=== PATIENT | female | born 1995 | race Caucasian/White ===

== ENCOUNTER 2019-03-22 15:54 | Emergency (ER) | payer BC, SELFPAY ==
[2019-03-22 15:57] VITALS: BP 140/79; PULSE 112; RESP 16; TEMP 36.6; O2SAT 96; BMI 26.5
--- NOTE | 2019-03-22 16:17 | CT_ITS ---
STUDY: CT ABDOMEN AND PELVIS WITHOUT CONTRAST REASON FOR EXAM: Female, 23 years old. Back pain history of cystic fibrosis RADIATION DOSAGE (If Supplied By Facility): CTDIvol = ( 6.83 ) mGy, DLP = ( 341.48 ) mGycm TECHNIQUE: Transaxial images were obtained from the dome of the diaphragm to the symphysis pubis without oral contrast, and without intravenous contrast. Sagittal and coronal images were reconstructed. Individualized dose optimization techniques were used for this CT. COMPARISON: None. FINDINGS: The visualized lung bases are unremarkable. The visualized portions of the heart are within normal limits. There are punctate densities within the left hepatic lobe which likely representing calcification. Normal gallbladder and extrahepatic biliary system. There is mild splenomegaly. The spleen measures 12.5 x 8.3 x 12.5 cm. There is diffuse atrophy of the pancreas. The pancreatic tissue is not well-visualized. Normal bilateral adrenal glands. Normal right kidney. Normal left kidney. There is a small hiatal hernia. A few nonspecific mesenteric lymph nodes. There are mildly distended loops of small bowel. There is a tortuous appearance of the bowel. There are a few air-fluid levels within the colon. There is a diverticula within the splenic flexure or lymph node image #59. Tip of the appendix is seen on image #31 without significant surrounding inflammation that is upper limits of normal in width. Normal abdominal aorta. Normal inferior vena cava. Normal retroperitoneum. Normal urinary bladder. Normal visualized uterus. There is a left ovarian cyst measuring 1.8 cm. Normal abdominal wall. Normal osseous structures. CT/Abdomen/Pelvis without Cont IMPRESSION: The appendix image #31 and series 601 is visualized. The tip of the appendix is upper limits of normal in width without evidence of inflammatory change recommend correlation with history. There are nonspecific mildly distended loops of small bowel which may represent mild ileus possible enteritis. Small left ovarian cyst. There are no visualized renal ureteral bladder calculi. Mild splenomegaly. Pancreatic atrophy. Electronically Signed: Ebonie Garcia MD at 17:48 EDT Tel , Service support ,
--- NOTE | 2019-03-22 16:17 | RAD_ITS ---
STUDY: X-RAY CHEST REASON FOR EXAM: Female, 23 years old. Right-sided lower back pain TECHNIQUE: Single AP portable view of the chest. COMPARISON: None. FINDINGS: There is a right-sided portacatheter with the tip in the superior vena cava There is a pattern of bilateral upper lung zone peribronchial thickening and areas of cystic change. Normal size heart. Normal mediastinum and deandre. Normal visualized pulmonary arteries. Normal visualized aortic arch and descending thoracic aorta. There are minimal degenerative changes of the visualized thoracic spine. Normal visualized ribs, clavicles, and shoulders. There is no demonstrated abnormality of the visualized soft tissue structures of the upper abdomen. RAD/Chest PA and Lateral IMPRESSION: Findings suspicious for diagnosis of cystic fibrosis with peribronchial inflammatory change. Port-A-Cath. Electronically Signed: Ebonie Garcia MD at 17:51 EDT Tel , Service support ,
--- NOTE | 2019-03-22 16:20 | ED.VISSUMM ---
- ER Visit Summary Date of Service: 03/22/19 Chief Complaint: Flank pain and shortness of breath History of Present Illness: The patient is a 23 F who presents with flank pain shortness of breath that have been getting worse over the past 5 days. Patient states she has a history of kidney stones as well as a history of cystic fibrosis. Patient states she has been coughing up some green sputum. Patient admits to subjective fevers and chills. Patient also admits to some sweats. Patient denies any chest pain. Patient states she does have pain in her low back and bilateral flanks. Patient states that with prior kidney stone she became septic and was hospitalized for lengthy time. Patient denies any dysuria or hematuria. Physical Examination: Vital signs are stable except for mild tachycardia of 112. Patient is afebrile. Patient is in no acute distress. Oral mucosa is pink and moist. Neck is supple. Trachea is midline. There is no JVD. Heart was regular rate and rhythm. Lungs were diminished bilaterally. There is adequate respiratory effort noted. Abdomen is soft. Bowel sounds are normal. There is no tenderness. There is no guarding. Cranial nerves II through XII are intact. There are no focal motor or sensory deficits noted. Test Results: CBC shows a slight leukocytosis of 15.4. Basic metabolic profile and urinalysis were normal. hCG was negative. Chest x-ray shows chronic changes consistent with cystic fibrosis with some inflammatory changes. CT scan of the abdomen and pelvis was obtained. There are no renal, ureteral, or bladder calculi noted. Emergency Department Course and Treatment: Patient was feeling better on reevaluation. Patient was instructed to follow-up with her primary care physician and churn driller helper as scheduled. Patient understood and was agreeable with the plan. All questions were answered. Disposition: Discharge home Impression: 1. Low back pain This note was generated with Wooop dictation software. It may contain incorrect words, spelling, and punctuation that were not noted in review of the chart prior to signing ED Disposition - Plan for ED Patient: Disposition: Home or Assisted Living Diagnosis: Low back pain Instructions: FLANK PAIN, Uncertain Cause Referrals: Care Physician,No Primary [Primary Care Provider] - 3-5 Days Additional Instructions: Continue your medications as previously prescribed. Follow-up with your primary care physician in 5 to 7 days. Return to the emergency department if worse in any way.
[2019-03-22 16:51] LABS: Absolute Lymphocyte Count 1.81 X10^3/uL (0.83-4.51); Absolute Neutrophil Count 12.4 X10^3/uL (2.0-7.7); Basophil# 0.07 X10^3/uL; Basophil% 0.5 % (0-1); Eosinophil# 0.06 X10^3/uL; Eosinophils% 0.4 % (0-5); Hematocrit 39.7 % (37-47); Hemoglobin 12.4 g/dL (12.0-15.0); Lymphocyte # 1.81 X10^3/ul (4.0); Lymphocyte % 11.7 % (19-41); Mean Corp Hgb Conc 31.2 g/dL (32-36); Mean Corpuscular Volume 86.3 fL (81-99); Mean Platelet Vol. 10.4 fl (6.2-12.0); Monocyte# 1.08 X10^3/uL; NRBC Flagged by Analyzer 0 % (0-5); Neutrophil # 12.36 X10^3/uL (2.7-7.7); Platelet Count 425 K/mm3 (150-450); RBC Distribution Width CV 13.4 % (11.6-14.6); RBC Distribution Width SD 42.1 fl (35.1-43.9); White Blood Count 15.4 K/mm3 (4.4-11.0)
[2019-03-22 16:59] LABS: Bacteria 0 SEEN /hpf (None Seen); Mucous, Urine 0 SEEN /hpf (<or=2+); Red Blood Cells-Urine 0 SEEN /hpf (0-5); White Blood Cells 0 SEEN /hpf (0-5)
[2019-03-22 17:09] LABS: Color, Urine Straw (Yellow); Glucose, Dipstick Normal (Normal); Ketone-Dipstick Negative (Negative); Leukocyte Esterase-Dipstick Negative /ul (Negative); Nitrite-Dipstick Negative (Negative); Occult Blood-Urine Negative /ul (Negative); Protein-Dipstick Negative (Negative); Specific Gravity, Urine 1.015 (1.002-1.030); Urine Bilirubin Dipstick Negative (Negative); Urine Clarity Clear (Clear); Urine Urobilinogen Normal (Normal)
[2019-03-22 17:13] LABS: Internal QC Validated? YES +Cl - CLEAR BKGD; Pregnancy, Serum, hCG Quali. NEGATIVE Negative
[2019-03-22 17:20] LABS: Squamous Epithelial Cells - UA 0-5 SEEN /hpf (5-10)
[2019-03-22 17:45] LABS: Anion Gap 6 (5-15); BUN 7 mg/dL (7-18); BUN/Creat Ratio 8.4 RATIO (10-20); Calcium,Total 9.4 mg/dL (8.5-10.1); Chloride 104 mmol/L (98-107); Creatinine, Serum 0.84 mg/dL (0.55-1.02); EST Glomerular Filtration Rate 90 mL/min (>60); Est Glom Filt Rate - Afr Amer 109 mL/min (>60); Glucose 81 mg/dL (74-106); Potassium 4.4 mmol/L (3.5-5.1); Sodium Level 136 mmol/L (136-145)
== END 2019-03-22 18:41 | disposition home or self-care (01) ==
PROVIDERS: Emergency Provider Emergency Medicine
DX: M54.5 Low back pain (principal); E84.9 Cystic fibrosis, unspecified; E11.9 Type 2 diabetes mellitus without complications; Z87.442 Personal history of urinary calculi
CPT/HCPCS: 71046; 74176; 80048; 81001; 84703; 85025; 99284; A4216

== ENCOUNTER → 2020-01-10 | Outpatient (CLI) | payer BC, SELFPAY ==
[2019-12-31 18:54] VITALS: BMI 28.9
[2020-01-14 03:06] LABS: Chlamydia By Nucleic Acid AMP Negative (Negative)
[2020-01-14 10:46] LABS: Gonococcus By Nucleic Acid AMP Negative (Negative)
== END | disposition home or self-care (01) ==
PROVIDERS: Referring Provider Obstetrics & Gynecology; Visit Provider Obstetrics & Gynecology
DX: Z11.3 Encounter for screening for infections with a predominantly sexual mode of transmission (principal)
CPT/HCPCS: 87491; 87591

== ENCOUNTER → 2020-01-15 06:20 | Outpatient (CLI) | payer BC, SELFPAY ==
[2019-12-31 18:54] VITALS: BMI 28.9
[2020-01-15 07:22] LABS: Hematocrit 43.3 % (37-47); Hemoglobin 14.1 g/dL (12.0-15.0); Mean Corp Hgb Conc 32.6 g/dL (32-36); Mean Corpuscular Hgb 28.9 pg (27.0-32.0); Mean Corpuscular Volume 88.7 fL (81-99); Mean Platelet Vol. 11.1 fl (6.2-12.0); Platelet Count 317 K/mm3 (150-450); RBC Distribution Width CV 12.3 % (11.6-14.6); RBC Distribution Width SD 39.8 fl (35.1-43.9); Red Blood Count 4.88 M/mm3 (4.2-5.4); White Blood Count 5.9 K/mm3 (4.4-11.0)
[2020-01-15 08:24] LABS: PTHIN 47.5 pg/mL (18.4-80.1)
[2020-01-15 08:49] LABS: Estradiol 24.2 pg/mL; Follicle Stimulating Hormone 6.3 mIU/mL; Luteinizing Hormone 5.3 mIU/mL; T4 Free Direct 1.18 ng/dL (0.76-1.46); Thyroid Stim Hormone (TSH) 4.76 uIU/mL (0.358-3.74)
[2020-01-15 10:19] LABS: HIV - WCH Non-Reactive (Nonreactive); Hepatitis B Surface Antigen Non-Reactive (Nonreactive); Hepatitis C Antibody Non-Reactive (Nonreactive); Progesterone Level 0.43 ng/mL (See Comment); Rubella IgG 109.8 IU/mL
[2020-01-16 05:28] LABS: Rapid Plasmin Reagin (RPR) NONREACTIVE (NONREACTIVE)
[2020-01-19 16:28] LABS: 17-Hydroxyprogesterone 44 ng/dL (.)
[2020-01-20 00:21] LABS: Anti-Mullerian Hormone,Serum 3.26 ng/mL (.)
== END ==
LOC: LAB 06:24
PROVIDERS: PCP Nurse Practitioner; Referring Provider Obstetrics & Gynecology; Visit Provider Obstetrics & Gynecology
DX: N93.9 Abnormal uterine and vaginal bleeding, unspecified (principal); Z11.3 Encounter for screening for infections with a predominantly sexual mode of transmission
CPT/HCPCS: 36415; 82670; 83001; 83002; 83498; 83516; 83970; 84144; 84403; 84439; 84443; 85027; 86592; 86703; 86762; 86803; 87340

== ENCOUNTER → 2020-02-17 | Outpatient (CLI) | payer BC, SELFPAY ==
[2019-12-31 18:54] VITALS: BMI 28.9
--- NOTE | 2020-02-17 10:20 | RAD_ITS ---
STUDY: HYSTEROSALPINGOGRAM. REASON FOR EXAM: Female, 24 years old. Infertility FLUOROSCOPY TIME (if supplied): ( 34 seconds ) minutes/seconds. 2 images were obtained. TECHNIQUE: A hysterosalpingogram was performed by the economics teacher. Imaging was provided. COMPARISON: None. FINDINGS: The uterus is unremarkable. Both fallopian tubes are patent with free spill. RAD/Salpingogram IMPRESSION: Normal hysterosalpingogram. Electronically Signed: Weston Weller, at 11:03 EDT , Service support ,
== END | disposition home or self-care (01) ==
LOC: RAD 10:03
PROVIDERS: PCP Nurse Practitioner; Referring Provider Obstetrics & Gynecology; Visit Provider Obstetrics & Gynecology
DX: N97.9 Female infertility, unspecified (principal)
CPT/HCPCS: 58340; 74740; Q9967

== ENCOUNTER → 2020-10-13 10:02 | Outpatient (CLI) | payer BC, SELFPAY ==
[2019-12-31 18:54] VITALS: BMI 28.9
[2020-10-13 11:10] LABS: Absolute Lymphocyte Count 1.68 X10^3/uL (0.83-4.51); Absolute Neutrophil Count 4.2 X10^3/uL (2.0-7.7); Basophil# 0.05 X10^3/uL; Basophil% 0.7 % (0-1); Eosinophil# 0.21 X10^3/uL; Eosinophils% 3.1 % (0-5); Hematocrit 39.2 % (37-47); Hemoglobin 12.8 g/dL (12.0-15.0); Lymphocyte # 1.68 X10^3/ul (0.83-4.51); Lymphocyte % 25.1 % (19-41); Mean Corp Hgb Conc 32.7 g/dL (32-36); Mean Corpuscular Hgb 27.9 pg (27.0-32.0); Mean Corpuscular Volume 85.4 fL (81-99); Mean Platelet Vol. 11.4 fl (6.2-12.0); Monocyte# 0.51 X10^3/uL; Monocyte% 7.6 % (0-10); NRBC Flagged by Analyzer 0 % (0-5); Neutrophil # 4.23 X10^3/uL (2.7-7.7); Neutrophil % 63.4 % (47-70); Platelet Count 269 K/mm3 (150-450); RBC Distribution Width CV 13.2 % (11.6-14.6); RBC Distribution Width SD 40.9 fl (35.1-43.9); Red Blood Count 4.59 M/mm3 (4.2-5.4); White Blood Count 6.7 K/mm3 (4.4-11.0)
[2020-10-13 12:30] LABS: HIV - WCH Non-Reactive (Nonreactive); Hepatitis B Surface Antigen Non-Reactive (Nonreactive); Hepatitis C Antibody Non-Reactive (Nonreactive); Rubella IgG Reactive (Nonreactive); Syphilis Antibodies Non-reactive
[2020-10-15 18:01] LABS: HPV Reflexed? NOT INDICATED
[2020-10-15 20:08] LABS: Chlamydia By Nucleic Acid AMP Negative (Negative)
[2020-10-16 08:29] LABS: Gonococcus By Nucleic Acid AMP Negative (Negative)
== END ==
PROVIDERS: PCP Nurse Practitioner; Visit Provider Obstetrics & Gynecology
DX: Z34.81 Encounter for supervision of other normal pregnancy, first trimester (principal)
CPT/HCPCS: 36415; 85025; 86703; 86762; 86780; 86803; 87086; 87088; 87340; 87491; 87591; 88175; G0145

== ENCOUNTER 2020-10-21 07:33 | Day surgery (SDC) | payer BC, SELFPAY ==
[2019-12-31 18:54] VITALS: BMI 28.9
[2020-10-21] VITALS (9 sets, daily range): BP systolic 100–119; BP diastolic 52–71; PULSE 72–95; RESP 16–18; TEMP 36.4–37.3; O2SAT 97–100; BMI 31.8
[2020-10-21] MEDS: Lactated Ringers 1,000 ML 100 ML IV (08:30)
[2020-10-21 08:41] LABS: Hematocrit 40.4 % (37-47); Hemoglobin 12.8 g/dL (12.0-15.0); Mean Corp Hgb Conc 31.7 g/dL (32-36); Mean Corpuscular Hgb 28.4 pg (27.0-32.0); Mean Corpuscular Volume 89.6 fL (81-99); Mean Platelet Vol. 11.3 fl (6.2-12.0); Platelet Count 224 K/mm3 (150-450); RBC Distribution Width CV 13.4 % (11.6-14.6); RBC Distribution Width SD 43.8 fl (35.1-43.9); Red Blood Count 4.51 M/mm3 (4.2-5.4); White Blood Count 7.5 K/mm3 (4.4-11.0)
--- NOTE | 2020-10-21 08:53 | HP.PCM.OB_ITS ---
History and Physical Date of Admission: 10/21/20 Chief complaint: Missed History of present illness: 25-year-old G1, P0 with SULEMA: 05/30/2021 at 8 weeks and 3 days but with missed of mono ditwins measuring 7 weeks and 2 days. Denies headache, chest pain, shortness of breath, nausea vomiting, right upper quadrant pain, visual changes. Obstetric history: G1: Current Past medical history: Cystic fibrosis Medications: Creon, cromolyn, Trikafta Past surgical history: Hernia repair, Mediport insertion, bowel obstruction as a child Allergies: Sulfa, levofloxacin, vancomycin, dicyclomine Social history: Denies smoking, alcohol use, drug use Family history: Denies history DVT or PE Review of systems: Besides above pertinent positives a full review of systems was performed found to be negative Physical exam: Vitals: Blood pressure 119/60 pulse 84 respiratory rate 16 temperature 97.9 SpO2 98% General: Normal-appearing no acute distress HEENT: Normocephalic atraumatic no cervical lymphadenopathy Cardiac/respiratory: No use of accessory muscles, nonlabored breathing Abdomen: Soft, nontender, nondistended Pelvic exam: Normal external genitalia. Moist vaginal rugae. Cervix closed, no signs of bleeding or discharge. Uterus nontender Extremities: No peripheral edema normal peripheral pulses Psych: Normal affect normal demeanor nonpressured speech Labs: White blood cell count 7.5 hemoglobin 12.8 hematocrit 40.4% platelets 224. Blood type a positive In office ultrasound: Monitor I twins both baby A and B with no heart rate measuring 7 weeks 2 days Assessment plan: 25-year-old with missed of mono ditwins measuring 7 weeks and 2 days in need of suction dilation curettage. Patient understands the risk of the procedure include but are not limited to visceral or vascular injury, prolonged hospitalization, blood loss need for transfusion, reoperation. All questions were answered consent was signed. Educated patient on genetic screening and options for products of conception. Patient declines genetic screening and is not wish for products of conception ongoing. Patient with cystic fibrosis, stable seeing a physician in [facility] with stable lung function and asymptomatic. Patient with previous labs, no labs this morning discussed this with anesthesia who agrees.
--- NOTE | 2020-10-21 09:00 | POC_PTH ---
PATIENT: OCTAVIO SAMANO LOC: [facility] [place] [facility] [place] U[place][id number] AGE/SX: 25/F ROOM: RE10/21/[address]: Dr. Kirill Roberts MD : 1995 BED: DIS: 10/21/2020 SPEC #: [id number] RECD: 10/21/20 11:24 STATUS: PARKER JAMESONKristel #: [id number] ZULMA: 10/21/20 09:[address]: Kirill Roberts DEPT: SURGICAL PATHOLOGY RECD BY: Scooby Craig ENTERED: 10/21/20 11:40 SP TYPE: PROD CONC OTHR DR: Karly Ramirez, BYPRODUCT ENGINEER-C Tissues: Product of conception, NOS Procedures: Surgery Specimen Level IV HEADER OPERATION: Suction dilation and curettage PRE-OP DIAGNOSIS: Missed TISSUE SUBMITTED: Products of conception MICROSCOPIC DIAGNOSIS Endometrium, curettage: Chorionic villi, decidualized stroma and trophoblastic cells consistent with products of conception. AM:margot 10/22/2020 MICROSCOPIC DESCRIPTION Slides are reviewed. GROSS DESCRIPTION Received in fixative is one container labeled with the patient's name and designated products of conception. The specimen consists of multiple irregular fragments of canales-pink soft tissue that in aggregate measure 7 x 7 x 2 cm. tissue is not identified. Truck Driver Supervisor sections are submitted in three cassettes. / SJ:margot 10/21/20 TC:5 [facility]: [id number]
[2020-10-21] MEDS: Oxytocin 10 UNITS/ML Vial (09:27)
[2020-10-21] MEDS: Lubricating Jelly 60 GM Tube 30 GM TOPICAL (09:34)
--- NOTE | 2020-10-21 10:06 | OP.PCM_ITS ---
Report of Operation Date of Procedure: 10/21/20 Pre-Operative Diagnosis: Missed Post-Operative Diagnosis: Missed Surgery/Procedure Performed:: Suction dilation curettage Description of Surgical Findings:: Surgeon: Kirill Roberts MD Anesthesia: MAC EBL: 50 cc Urine output: 200 cc IV fluids: 300 cc Complications: None Specimen: Products of conception Findings: Cervix closed, no bleeding noted. 8 mm curved suction curette used. 10 units of oxytocin intracervically injected post procedure. Post procedure ultrasound showed thin endometrial stripe. Consent: Patient with 7-week mono ditwins found to have missed in need of suction dilation curettage. Patient understands the risk of the procedure include but are not limited to visceral or vascular injury, prolonged hospitalization, blood loss and need for transfusion, reoperation. Patient state understanding wish to proceed. Educated on genetic screening and options for products of conception, patient declined genetic screening and declined handling of products of conception. All questions were answered and consent was signed. Procedure: Patient was brought back to the OR where MAC anesthesia was found be adequate. 200 mg of doxycycline IV were given for infection prophylaxis. Patient was prepared and draped in a dorsolithotomy position with yellowfin stirrups. Weighted speculum was placed in the posterior aspect of the vagina and cervical dilators were used to dilate the cervix. 8 mm suction curette used under direct visualization. Good hemostasis was noted. 10 units of oxytocin intracervically injected. Good hemostasis was noted. Post procedure bedside ultrasound was performed and above findings were noted. Good hemostasis was noted, all counts correct x2. Patient tolerated procedure well was brought to recovery in stable condition. drone operator: Mary Zapata
--- NOTE | 2020-10-21 10:12 | DCINST_ITS ---
Discharge Instructions Diet Discharge Diet: No restrictions Activity Discharge Activity: Return to Normal Activity, May Drive and May Shower May resume sexual activity in: 4-6 weeks Weight Bearing Status: Weight bearing as tolerated Dressing / Incision Call your doctor if your incision/area has: Continuous Slow Oozing, Sudden Increased Bleeding and Foul Smelling Discharge Call your doctor if you observe: Fever of 101 or Higher, Shortness of breath and Chest pain Follow Up Care Please Follow Up With: Kirill Roberts MD When: 2 weeks postoperatively Test Results: Test results from this visit will be discussed in further detail at your follow-up appointment, if applicable. Discharge Plan Admission Attending Provider: Kirill Roberts Primary Care Provider: Karly Ramirez CERTIFIED PROFESSIONAL ERGONOMIST Discharge Orders/Prescriptions Prescriptions: No Action Creon 24,000-76,000 -120,000 unit capsule,delayed release(DR/EC) 7 cap PO TID RF: 0 albuterol sulfate 90 mcg/actuation HFA aerosol inhaler 1 inh INHALATION BID RF: 0 acetylcysteine 200 mg/mL (20 %) solution 2 ml INHALATION BID RF: 0 cromolyn 20 mg/2 mL solution for nebulization 2 ml INHALATION BID RF: 0 Trikafta 100-50-75 mg(d) /150 mg (n) tablets, sequential See Rx Instructions .ROUTE .COMPLEX RF: 0 Disposition Discharge Orders: Discharge Patient (Routine); Ordered 10/21/20 Ordered By: Dr. Kirill Roberts
[2020-10-21] MEDS: Ketorolac 30 MG/ML Syringe IV (10:21)
== END 2020-10-21 11:19 ==
LOC: SDC 07:34 → AC 07:35
PROVIDERS: PCP Nurse Practitioner; Referring Provider Obstetrics & Gynecology; Visit Provider Obstetrics & Gynecology
PROC: (CPT 59820; principal; 2020-10-21 08:45)
DX: O02.1 Missed abortion (principal); Z20.822 Contact with and (suspected) exposure to COVID-19
CPT/HCPCS: 59820; 85027; 87426; 88305; J7120; J2405

== ENCOUNTER → 2021-04-13 10:57 | Outpatient (CLI) | payer BC, SELFPAY ==
[2021-04-13 11:17] LABS: Absolute Lymphocyte Count 1.63 X10^3/uL (0.83-4.51); Basophil# 0.03 X10^3/uL; Basophil% 0.5 % (0-1); Eosinophils% 1.6 % (0-5); Hematocrit 40.7 % (37-47); Hemoglobin 13.3 g/dL (12.0-15.0); Lymphocyte # 1.63 X10^3/ul (0.83-4.51); Lymphocyte % 26.1 % (19-41); Mean Corp Hgb Conc 32.7 g/dL (32-36); Mean Corpuscular Hgb 28.2 pg (27.0-32.0); Mean Corpuscular Volume 86.2 fL (81-99); Mean Platelet Vol. 11.3 fl (6.2-12.0); NRBC Flagged by Analyzer 0 % (0-5); Neutrophil # 3.97 X10^3/uL (2.7-7.7); Neutrophil % 63.6 % (47-70); Platelet Count 237 K/mm3 (150-450); RBC Distribution Width CV 13.2 % (11.6-14.6); RBC Distribution Width SD 40.9 fl (35.1-43.9); Red Blood Count 4.72 M/mm3 (4.2-5.4); White Blood Count 6.2 K/mm3 (4.4-11.0)
[2021-04-13 12:27] LABS: HIV - WCH Non-Reactive (Nonreactive); Hepatitis B Surface Antigen Non-Reactive (Nonreactive); Hepatitis C Antibody Non-Reactive (Nonreactive); Syphilis Antibodies Non-reactive
[2021-04-14 22:06] LABS: Chlamydia By Nucleic Acid AMP Negative (Negative)
[2021-04-14 22:48] LABS: Gonococcus By Nucleic Acid AMP Negative (Negative)
== END ==
PROVIDERS: PCP Nurse Practitioner; Visit Provider Obstetrics & Gynecology
DX: Z34.81 Encounter for supervision of other normal pregnancy, first trimester (principal)
CPT/HCPCS: 36415; 85025; 86703; 86762; 86780; 86803; 87086; 87088; 87340; 87491; 87591

== ENCOUNTER 2021-08-09 09:22 | Outpatient (CLI) | payer BC, SELFPAY ==
[2021-08-09 10:45] LABS: Hematocrit 33.8 % (37-47); Hemoglobin 11.5 g/dL (12.0-15.0); Mean Corpuscular Hgb 30.1 pg (27.0-32.0); Mean Corpuscular Volume 88.5 fL (81-99); Mean Platelet Vol. 11.6 fl (6.2-12.0); Platelet Count 213 K/mm3 (150-450); RBC Distribution Width CV 14.5 % (11.6-14.6); RBC Distribution Width SD 45.9 fl (35.1-43.9); Red Blood Count 3.82 M/mm3 (4.2-5.4); White Blood Count 7.3 K/mm3 (4.4-11.0)
[2021-08-09 10:51] LABS: Glucose Challenge Gest 1H 50g 158 mg/dL (70-140)
== END 2021-08-09 23:59 | disposition home or self-care (01) ==
LOC: WOBLAB 09:24
PROVIDERS: PCP Nurse Practitioner; Visit Provider Obstetrics & Gynecology
DX: Z34.83 Encounter for supervision of other normal pregnancy, third trimester (principal)
CPT/HCPCS: 36415; 82950; 85027

== ENCOUNTER → 2021-10-26 | Outpatient (CLI) | payer BC, SELFPAY | END | disposition home or self-care (01) | LOC: LABSPEC 13:19 | PROVIDERS: PCP Nurse Practitioner; Visit Provider Obstetrics & Gynecology | DX: Z36.85 Encounter for antenatal screening for Streptococcus B (principal) | CPT/HCPCS: 87081 ==

== ENCOUNTER 2021-10-28 05:45 | Inpatient (IN) | payer BC, SELFPAY ==
[2021-10-28] VITALS (23 sets, daily range): BP systolic 95–117; BP diastolic 46–76; PULSE 65–99; RESP 15–18; TEMP 35.9–37.1; O2SAT 96–100; BMI 34.2
[2021-10-28 05:39] LABS: ROM Internal Control Test YES-OK TO RESULT pt. (Internal QC)
[2021-10-28 05:40] LABS: ROM Patient Test POSITIVE (Negative)
[2021-10-28] MEDS: Lactated Ringers 1,000 ML 999 ML IV (06:20)
[2021-10-28 06:21] LABS: Bedside Glucose 82 mg/dL (74-106)
--- NOTE | 2021-10-28 06:42 | PCM.HP.BLA ---
History and Physical Date of Admission: 10/28/21 ACOG ANTEPARTUM RECORD - HISTORY AND PHYSICAL (10/28/2021) Name: BISI SAMANO History of this : This is a 26 year old [id number] presents at 37 wks + 0 days gestation with PROM. PNC remarkable for recent breech confirmed with bedside u/s just now. OB Physician: MARYELLEN BARRIENTOS MD Mulhall's Physician: PED AVICULTURIST ...................................................................... : 1995 Age: 26 Address: [address] [place] [address] Phone: [phone]) [phone] Insurance Carrier: [employer] [facility] [id number] Emergency Contact: KARINA NAYAK/SPOUSE [phone] ...................................................................... Final SULEMA: 11/18/21 By Ultrasound: 6 weeks 5 days PARITY: (G-Total Pregnancies P-Fullterm,Premature,Induced AB,Spont AB, Ectopics, Multiple,Living) SULEMA CONFIRMATION: By LMP: 02/11/21 Initial Exam: 11/18/21 By First Ultrasound Exam: 11/19/21 Final SULEMA: 11/18/21 OB PROBLEM LIST: ALLERGIES: SULFA, ZOSYN, VANCOMYCIN,FLOMAX, BENTYL, LEVSIN, LEVAQUIN planned, office class encouraged , office childbirth class enc Declines genetic screening GDMA1 , LGA 97% Hx of renal calculi, and UTI's Prefers no epidural, but is not opposed if needed Pt with Cystic fibrosis , pt sees [facility]. FOB negative for CF. s/p MFM consult. For growth u/s at 28wks then q4wks ALLERGIES: Bentyl Chest pain Flomax Shortness of breath Levaquin Angioedema of tongue Levsin Chest pain Sulfa (Sulfonamide Antibiotics) Hives and/or rash Vancomycin Hives and/or rash Zosyn Difficulty breathing MEDICATIONS: acetylcysteine 100 mg/mL (10 %) solution BID albuterol sulfate 2.5 mg/3 mL (0.083 %) solution for nebulization As Directed Creon 24,000-76,000-120,000 unit capsule,delayed release 21 capsule PO QD cromolyn 20 mg/2 mL solution for nebulization As Directed 28 mg-800 mcg tablet One pill by mouth once a day Trikafta 100-50-75 mg (d)/150 mg (n) tablets 1 PO BID SOCIAL HISTORY: Smoking - Never Alcohol Use - denies drinking Diet - balanced Diet Lifestyle - low stress lifestyle, active lifestyle and Exercise - very active 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 - [employer] 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 Illicit Drug Use - denies use of street drugs Sexual Activity - single sexual partner Residence - Lives with SO Place of - [place], [place] Hours Worked - 45 Spouse-Sig Other Name - Karina Nayak Spouse-Sig Other Occupation - [employer] Spouse-Sig Other Phone No - [phone] PRIOR DELIVERY HISTORY DEL DATE GEST LAB WT LB WT OZ TYPE ANES LABOR TX 02 Nov 09 7 0 [phone] 0 Sab General No ANTEPARTUM FLOW CHART VISIT GE RTC FU F F ID U U DATE WK MD WKS HT PN HR M SS BP ED WT ID GL D EF ST __ ____ ___ __ __ ___ __ __ __ ___ __ __ __ ___ __ 07 Oct JM 1 36 B on + 128/72 sl 193 - - 2 September JM 1 35 B on + 118/60 sl 194 ne ne September JM 1 34 B on + 122/78 0 192 - - September JMW 1 33 + + 114/70 0 189 tr - September JM 1 32 B + + 126/72 0 191 - - October 19 JMW 1 31 + + 86/60 190 tr ne Sep 17 JMW 2 29 + + 110/64 0 186 - - Sep 16 JM 2 - - on + 124/66 0 189 - - Aug 13 JM 4 - - + + 108/68 0 185 - - Jul 12 JM 4 21 - on + 98/64 0 183 - - Jun 07 JM 4 - - + + 118/62 0 178 - - May 03 JM 4 - - + O 116/74 0 176 tr - Mar 29 JM 4 - - on O 124/76 0 182 ne ne ANTEPARTUM NOTE(S): Oct 26 2021: Oct 19 2021: FM well, No complaints Oct 12 2021: Oct 05 2021: Sono today,Feeling Well,Good FM Sep 28 2021: Sep 21 2021: Excellent BS control; NST reactive Sep 06 2021: Normal BS results Aug 30 2021: Aug 09 2021: Jul 13 2021: having a boy Jun 11 2021: doing well May 13 2021: doing well Apr 13 2021: No problems COMPREHENSIVE ANTEPARTUM NOTE(S): Oct 26 2021: Bisi is 36w5d here for PNV good FM slight edema. GBS and LARC today. No concerns expressed. Would like cervical check today. Blood sugars are copied. BR Oct 26 2021: 36 weeks, BPP today 12/27. LGA 8lb9oz 97%. Breech, Discussed version versus , patient desires primary section. Order for surgery placed for 11/11/2021 for primary section. GDM A1 OTBS wnl. GBS collected today. Continue weekly BPP's JM Oct 19 2021: 35 weeks, BPP today 12/27. LGA. Breech, Discussed version versus , patient leaning towards . If breech next visit will schedule primary section for breech. GDMA1, OTBS wnl. GBS next visit. JM Oct 12 2021: Bisi is 34w5d here for PNV good FM no edema. Suagrs are copied. No concerns today. BR Oct 12 2021: 34 weeks, BPP 12/27, breech. Educated patient on breech. GDM A1, OTBS within normal limits. Ordered for BPP weekly. JM Sep 28 2021: Bisi is 32w5d here for PNV good FM no edema. States she is doing well no concerns. BR Sep 28 2021: 32 weeks, growth ultrasound today LGA 97 percentile. Breech. VU within normal limits. GDM A1, OTBS within normal limits. Ordered for BPP weekly. JM Sep 21 2021: Bisi is here w her for initial NST and visit. NST explained and questions answered. Feeling well. Baby active. Office Childbirth and BF Classes for September suggested along w [facility] WP virtual tour. NST reactive per Dr AGARWAL.. GIUSEPPE. Sep 06 2021: Bisi is 29w4d here for PNV good FM no edema. No concerns today. BR Aug 30 2021: Shannan is 28w4d here for PNV good FM no edema. She forgot to bring her blood sugars. BR Aug 30 2021: 28wk, Growth u/s today EFW >90% otherwise wnl. GDMA1 did not bring OTBS but states normal. Reviewed normal values. Ordered growth u/s at 32wks, consider weekly BPP's at 32wks. To see pulmonology in 3rd trimester. JM Aug 09 2021: Bisi is 25w4d here for PNV good FM no edema. no conerns 1 hr GTT today. BR Aug 09 2021: 25 weeks, 1 hour GTT today. Pulmonology ordered 2-hour GTT for standard glucose screening with cystic fibrosis. Patient failed 2-hour GTT, 156. Currently taking OTBS fasting and 2hr PP, all within normal limits. If failed 1 hour today will discontinue taking blood sugars and treat as GDMA, otherwise if past will just continue to allow pulmonology to treat appropriately. Status post second MFM Jul 13 2021: Bisi is here for a pnv at 21/5. Good FM. No edema present. Denies concerns/ complaints. Having a boy. GTT instructions and supplies given for next appt. MK Jul 13 2021: 21wks, anatomy u/s wnl. Saw pulmonology and will now be referred to a different MFM physician at [facility]. Is scheduled to see both pulmonology and MFM in July. For 1 hour GTT next visit. JM Jun 11 2021: Bisi is here for PNV. 17w1d doing well. States she has started to feel the baby move a little bit. No concerns or questions. BR Jun 11 2021: 17wk, patient with CF and sees [facility] sewage plant supervisor to ordered and MFM consult to the [facility] MFM's. Patient had virtual visit with [facility] MFM this, had very difficult experience. MFM's only recommendation was for vaccination. no recommendations on care, records pending. Patient scheduled for follow-up with sewage plant supervisor in June. Will discuss with pu May 13 2021: Bisi is 13weeks here today for PNV. Doing well with occasional nausea. No questions or complaints at this time. BR May 13 2021: 13 weeks, patient with cystic fibrosis seeing sewage plant supervisor. Windows Security Engineer ordered MFM consult, scheduled for virtual MFM visit on 05/17/2021. Patient canceled my order for genetic counseling. Minimal to mild nausea, improving. JM May 13 2021: Bisi is here for her NOB visit, she is a A1 with an SULEMA of 11/18/2021, current GA is 13 w 0 d. She is accompanied today by her SO, Karina Nayak, he seems to be very supportive. They state happiness with . 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 Karina is a [employer] hydraulic mechanic. Office practice patterns reviewed, as well as warning signs of preganncy , how to contact the off Apr 13 2021: Bisi is here for 8 wk 5 d PNV and FHT u/s. Spouse is with her for visit. Lab consent signed for cultures and bld work. Apr 13 2021: 8wk, panel and cultures today. Patient with cystic fibrosis sees [facility] has scheduled follow-up appointment. FOB negative for cystic fibrosis. Referral for MFM genetic counseling placed. Declines further genetic screening. JM Mar 30 2021: Bisi here for MM LMP 02-11-21 with POS UPT in office today. EDC 11-18-2021. G2 P-0 Having some nausea but does not prevent her from eating/drinking adequetly. What to expect when expecting book and office materials given. Spouse is here for visit today. REVIEW OF SYSTEMS: GENERAL - Denies fever, or chills SKIN - Denies rash, new skin lesions, or change in moles EYES - Denies blurred vision, or change in visual acuity EARS - Denies ear pain, or difficulty hearing NOSE - Denies nasal congestion, discharge, or bleeding MOUTH - Denies sore throat, or difficulty swallowing NECK - Denies pain or swelling RESPIRATORY - Denies shortness of breath, cough, wheezing CARDIOVASCULAR - Denies palpitations, chest pain, orthopnea, PND, peripheral edema, syncope or claudication GASTROINTESTINAL - Denies nausea, vomiting, diarrhea, constipation, Denies abdominal pain, melena and or bright red blood GENITOURINARY - Denies dysuria, frequency of urination, urgency, or hesitancy MUSCULOSKELETAL - Denies joint or muscle pain, or back pain NEUROLOGICAL - Denies localized numbness, weakness, or tingling PSYCHIATRIC - Denies depression, anxiety, substance abuse or suicide attempts ENDOCRINE - Denies heat or cold intolerance, weight loss or gain, increasing thirst HEMATO-IMMUNOLOGIC - Denies easy bruising, bleeding, oral ulcerations or recurrent infections GENETICS SCREENING: Age 35+ years: No Thalassemia: No Neural Tube Defect: No Down Syndrome: No LINDY-SACHS: No Sickle Cell Disease: No Hemophilia: No Musc. Dystrophy: No Cystic Fibrosis: Yes Cristian Chorea: No Mental Retardation: No Fragile X: No Other genetic: No Other defects: No SABs/still births: No Drugs since LMP: No INFECTION HISTORY: High risk AIDS: No High risk Hepatitis: No Exposed to TB: No Exposed to Herpes: No Rash/viral illness since LMP: No History of STD: No MENSTRUAL HISTORY: *Menses Amount/Duration: 4-5 DAYSMenses Regularity: RegularFrequency: monthlyMenarche (Age Onset): 15* PAST SUMMARY: PARITY: 1. Total Pregnancies............ 2 2. Full Term Pregnancies........ 0 3. Premature.................... 0 4. Abortions - Induced.......... 0 5. Abortions - Spontaneous...... 1 6. Ectopics..................... 0 7. Multiple Births.............. 0 8. Living Children.............. 0 PAST #1: Date of :.................. 10/21/20 Gestation Weeks:................ 7 Length of labor(hours):......... 0 Sex:............................ Weight-lbs:............... 0 Weight-oz:................ 0 Type of Delivery:............... Sab Type of Anesthesia:............. General Place of Delivery:.............. Pa Treatment of Labor?:.... No Comment: D+C, TWINS PHYSICAL EXAMINATION General Appearence: 26 yo female in no acute distress Vital Signs: AF, VSS Heart: RRR without rubs or gallops Lungs: CTA x 2 Breasts: deferred Abdomen: gravid Pelvis: Cervix: Presentation: cephalic Station: Fetus: Size: AGA Movement: present Heart: present Impression /Plan: 37 wks + 0 days breech intrauterine with SROM. Plan primary . Preparations in progress for delivery.
[2021-10-28] MEDS: Acetaminophen 500 MG Tablet 1000 MG PO ×3 (06:44→18:16)
[2021-10-28 06:49] LABS: Absolute Lymphocyte Count 1.78 X10^3/uL (0.83-4.51); Absolute Neutrophil Count 10.6 X10^3/uL (2.0-7.7); Basophil# 0.04 X10^3/uL; Basophil% 0.3 % (0-1); Eosinophil# 0.11 X10^3/uL; Eosinophils% 0.8 % (0-5); Hematocrit 34.7 % (37-47); Hemoglobin 11.3 g/dL (12.0-15.0); Lymphocyte # 1.78 X10^3/ul (0.83-4.51); Lymphocyte % 13.4 % (19-41); Mean Corp Hgb Conc 32.6 g/dL (32-36); Mean Corpuscular Hgb 28.3 pg (27.0-32.0); Mean Corpuscular Volume 86.8 fL (81-99); Monocyte# 0.78 X10^3/uL; Monocyte% 5.9 % (0-10); NRBC Flagged by Analyzer 0 % (0-5); Neutrophil # 10.56 X10^3/uL (2.7-7.7); Neutrophil % 79.3 % (47-70); Platelet Count 210 K/mm3 (150-450); RBC Distribution Width CV 13.6 % (11.6-14.6); RBC Distribution Width SD 42.6 fl (35.1-43.9); White Blood Count 13.3 K/mm3 (4.4-11.0)
[2021-10-28] MEDS: Sodium Citrate/Citric Acid 30 ML UDC PO (06:52)
[2021-10-28] MEDS: Cefazolin 2 GM in 0.9% Normal Saline 100 ML IV (07:07)
--- NOTE | 2021-10-28 07:55 | OP.PCM_ITS ---
Details Operative Information Date of Procedure: 10/28/21 Pre-Operative Diagnosis: Term, spontaneous rupture of membranes, breech Post-Operative Diagnosis: Term, spontaneous rupture of membranes, breech product scientist #1: Toña Lawrence Findings Description of Procedure: Procedure: Primary low transverse section Via Pfannenstiel incision Surgeon: Kirill Roberts MD Anesthesia: Spinal EBL: 600 cc IV fluids: 1000 cc Urine output: 200 cc Complications: None Specimen: None Findings: Male infant in breech position Apgars 8/9. Normal uterus, tubes, and ovaries Consent: Patient arrived with spontaneous rupture of membranes at 37 weeks and breech. For primary section Via Pfannenstiel incision. Patient understands risk of the procedure include but are not limited to visceral or vascular injury, prolonged hospitalization, blood loss and need for transfusion, reoperation. Patient stated understanding and wished to proceed. All questions were answered and consent was signed. Procedure: Patient was brought back to the OR where spinal anesthesia was found to be adequate. 2 g of Ancef and 500 mg of azithromycin were given for infection prophylaxis. Patient was prepared and draped in a supine position with leftward tilt. A Pfannenstiel incision was made at the skin with a scalpel. The incision was carried down to the fascia with a scalpel. The fascia was incised and extended laterally. Inferior aspect of the fascia was grasped with a clamp and the underlying rectus and pyramidalis muscle were dissected off sharply with Deleon scissors. In a similar fashion the superior aspect of the fascia was grasped with a clamp and the underlying rectus muscle was dissected off sharply. Rectus muscle was dissected at the midline down to the level of pubic symphysis. Preperitoneal fatty tissue was noted and peritoneum was entered bluntly. Peritoneum was extended superiorly and inferiorly with good visualization of bladder. Bladder blade was inserted and vesicouterine peritoneum was identified. Low transverse hysterotomy was performed. Baby delivered in standard breech fashion. Cord was cut and clamped. Baby is handed off to nursing. Placenta was delivered via cord traction and fundal massage. IV oxytocin was initiated in order to facilitate uterine contractions. Uterus was exteriorized and wiped out with dry laparotomy sponge. Uterus was closed in a continuous running fashion. Ghuuav-cs-nnuah's were placed. Good hemostasis was noted. Uterus was placed back into the abdominal cavity and reinspected and good hemostasis was noted. Fascia was closed in a continuous running fashion. Subcutaneous irrigation was performed, good hemostasis was noted. Skin was closed in a subcuticular fashion. All counts were correct x2. Patient tolerated procedure well and was brought to recovery in stable condition.
[2021-10-28] MEDS: Ketorolac 30 MG/ML Syringe IV ×3 (09:00→22:06)
[2021-10-28] MEDS: Oxytocin 30 units/NS 500 ml 30 UNITS/500 ML IV.SOLN 167 UNITS IV (09:02)
[2021-10-28] MEDS: Senna/Docusate Sodium 1 Tablet PO (10:45)
[2021-10-28 11:50] LABS: Bedside Glucose 155 mg/dL (74-106)
[2021-10-28] MEDS: Lactated Ringers 1,000 ML 100 ML IV (11:56)
--- NOTE | 2021-10-28 12:17 | NURSING ---
arun # [id number]
[2021-10-28] MEDS: LIPASE/PROTEASE/AMYLASE 1 EACH CAPSULE.DR 5 EACH PO ×2 (14:19→18:21)
[2021-10-28] MEDS: 0.9% Saline Lock 10 ML Syringe IV ×2 (15:48→22:07)
[2021-10-28] MEDS: ELEXACAFTOR/TEZACAFTOR/IVACAFT 1 EACH TABLET.SEQ PO (18:48)
[2021-10-28] MEDS: Enoxaparin 40 MG/0.4 ML Syringe SC (20:12)
[2021-10-28] MEDS: Albuterol 2.5 MG/3 ML VIAL.NEB. INHALATION (23:58)
[2021-10-29] VITALS (11 sets, daily range): BP systolic 102–117; BP diastolic 61–69; PULSE 66–84; RESP 14–18; TEMP 36.2–36.6; O2SAT 96–100
[2021-10-29] MEDS: Acetylcysteine (Mucomyst Oral) 20% SOLN 400 MG INHALATION ×3 (00:05→19:25)
[2021-10-29] MEDS: Acetaminophen 500 MG Tablet 1000 MG PO ×4 (00:19→18:41)
[2021-10-29] MEDS: Ketorolac 30 MG/ML Syringe IV (04:21)
[2021-10-29] MEDS: 0.9% Saline Lock 10 ML Syringe IV (04:22)
[2021-10-29 06:25] LABS: Bedside Glucose 73 mg/dL (74-106)
[2021-10-29 06:30] LABS: Hematocrit 30.1 % (37-47); Hemoglobin 9.7 g/dL (12.0-15.0); Mean Corp Hgb Conc 32.2 g/dL (32-36); Mean Corpuscular Hgb 28.5 pg (27.0-32.0); Mean Corpuscular Volume 88.5 fL (81-99); Mean Platelet Vol. 12.1 fl (6.2-12.0); Platelet Count 204 K/mm3 (150-450); RBC Distribution Width CV 13.7 % (11.6-14.6); RBC Distribution Width SD 44.3 fl (35.1-43.9); White Blood Count 10.4 K/mm3 (4.4-11.0)
--- NOTE | 2021-10-29 08:37 | PCM.PN.BLA ---
Progress Note Patient not in room. Will return to assess later today.
[2021-10-29] MEDS: Enoxaparin 40 MG/0.4 ML Syringe SC (09:31)
[2021-10-29] MEDS: Senna/Docusate Sodium 1 Tablet PO (09:31)
[2021-10-29] MEDS: LIPASE/PROTEASE/AMYLASE 1 EACH CAPSULE.DR 5 EACH PO ×3 (09:32→19:15)
[2021-10-29] MEDS: ELEXACAFTOR/TEZACAFTOR/IVACAFT 1 EACH TABLET.SEQ 2 EACH PO (09:33)
[2021-10-29] MEDS: Albuterol 2.5 MG/3 ML VIAL.NEB. INHALATION ×2 (10:11→19:21)
[2021-10-29] MEDS: CROMOLYN SODIUM 20 MG/2 ML INHALATION ×2 (10:12→19:25)
[2021-10-29] MEDS: Ibuprofen 600 MG Tablet PO ×2 (11:50→18:41)
--- NOTE | 2021-10-29 16:53 | PCM.PN.OB ---
Subjective Subjective Pain is well controlled. Denies heavy lochia. She tolerates PO. No complaints. She is pumping. Objective Data Objective Data Vital Signs: Vital Signs Temp Pulse Resp BP Pulse Ox 97.1 F L 75 16 115/69 98 10/29/21 16:28 10/29/21 16:28 10/29/21 16:28 10/29/21 16:28 10/29/21 16:28 Oxygen Delivery Method Room Air Weight: 87.543 kg Body Mass Index (BMI) 34.2 Intake & Output: Intake and Output for Last 24 Hours 10/27/21 10/28/21 10/29/21 23:59 23:59 23:59 Intake Total 4387.64 / 4387.64 Output Total 1950 / 1950 Balance 2437.64 / 2437.64 Lab / Micro Data Result Diagrams: 10/29/21 06:20 Labs: Laboratory Results - last 24 hr 10/29/21 06:09: POC Glucose 73 L 10/29/21 06:20: WBC 10.4, RBC 3.40 L, Hgb 9.7 L, Hct 30.1 L, MCV 88.5, MCH 28.5, MCHC 32.2, RDW Std Deviation 44.3 H, RDW Coeff of Markie 13.7, Plt Count 204, MPV 12.1 H Micro: Microbiology 10/28/21 06:15 Nasal Secretion SARS-CoV-2 Antigen (Rapid) - Final Physical Exam Const alert, oriented x3 and no apparent distress Resp normal respiratory effort, normal air movement and clear to auscultation bilaterally Cardio regular rate, regular rhythm, S1 normal heart sound and S2 normal heart sound GI normal to inspection, nondistended, normoactive bowel sounds, soft to palpation, non-tender and non-distended GI Narrative: incisional dressing c/d/i Manual OB Exam: other lochia scant Uterus Palpation: uterus fundus firm Extremity no calf tenderness Assessment & Plan (1) delivery delivered: PLAN: POD#1 Doing well hx CF - encouraged incentive spirometry Routine postop care
--- NOTE | 2021-10-29 19:05 | CPS ---
patient not in room at time of visit.
[2021-10-29] MEDS: ELEXACAFTOR/TEZACAFTOR/IVACAFT 1 EACH TABLET.SEQ PO (19:15)
--- NOTE | 2021-10-29 19:29 | CPS ---
PATIENT GIVEN UD ALBUTEROL PRN WITH MUCOMYST.
[2021-10-30] MEDS: Acetaminophen 500 MG Tablet 1000 MG PO ×2 (00:56→06:22)
[2021-10-30] MEDS: Ibuprofen 600 MG Tablet PO ×2 (00:56→06:21)
[2021-10-30 03:03] VITALS: BP 122/82; PULSE 91; RESP 14; TEMP 36.4; O2SAT 98
--- NOTE | 2021-10-30 07:22 | PCM.PN.OB ---
Subjective Subjective Pain well controlled.Has not required Oxycodone. Has no complaints this morning. Denies heavy lochia. Infant has latched and is nursing well. Objective Data Objective Data Vital Signs: Vital Signs Temp Pulse Resp BP Pulse Ox 97.5 F L 91 14 122/82 H 98 10/30/21 03:03 10/30/21 03:03 10/30/21 03:03 10/30/21 03:03 10/30/21 03:03 Oxygen Delivery Method Room Air Weight: 87.543 kg Body Mass Index (BMI) 34.2 Intake & Output: Intake and Output for Last 24 Hours 10/28/21 10/29/21 10/30/21 23:59 23:59 23:59 Intake Total 4387.64 / 4387.64 Output Total 1950 / 1950 Balance 2437.64 / 2437.64 Lab / Micro Data Result Diagrams: 10/29/21 06:20 Micro: Microbiology 10/28/21 06:15 Nasal Secretion SARS-CoV-2 Antigen (Rapid) - Final Physical Exam Const alert, oriented x3 and no apparent distress Resp normal respiratory effort and normal air movement Resp Narrative: few left apical rhonchi, otherwise, good air movement Cardio regular rate, regular rhythm, S1 normal heart sound and S2 normal heart sound GI normal to inspection, nondistended, normoactive bowel sounds, soft to palpation, non-tender and non-distended Manual OB Exam: other lochia scant Uterus Palpation: uterus fundus firm Extremity no calf tenderness Assessment & Plan (1) delivery delivered: PLAN: POD#2 Rh positive Doing well hx CF - encouraged incentive spirometry Routine postop care Infant in [facility] Nurs[facility] and doing well Plan for d/c home later today with (2) Gestational diabetes: QUALIFIERS: Gestational diabetes mellitus control: diet-controlled Trimester: third trimester Qualified Code(s): O24.410 - Gestational diabetes mellitus in , diet controlled
--- NOTE | 2021-10-30 07:28 | PCM.DC.SUM ---
Providers Date of Admission: 10/28/21 Primary Care Physician: VAHE Medina Reason For Visit: PRIMARY C SECTION Diagnosis Discharge Diagnosis (1) delivery delivered: Status: Acute Code(s): O82 - Encounter for delivery without indication (2) Gestational diabetes: Status: Acute Code(s): O24.419 - Gestational diabetes mellitus in , unspecified control Qualifiers: Gestational diabetes mellitus control: diet-controlled Trimester: third trimester Qualified Code(s): O24.410 - Gestational diabetes mellitus in , diet controlled Medications at Discharge Home Medications acetylcysteine 200 mg/mL (20 %) solution 2 ml INHALATION BID 12/31/19 albuterol sulfate 90 mcg/actuation aerosol inhaler 1 inh INHALATION BID 12/31/19 cromolyn 20 mg/2 mL solution for nebulization 2 ml INHALATION BID ml 12/31/19 elexacaftor 100 mg-tezacaf 50mg-ivacaf 75mg(d)/ivacaf 150mg(n) tablets See Rx Instructions .ROUTE .COMPLEX 12/31/19 xvaesb-wzhswzra-rubushc 24,000-76,000-120,000 unit capsule,delayed rel 7 cap PO TID 12/31/19 ibuprofen 600 mg PO Q8H PRN PRN 7 Days #30 tab 10/30/21 Hospital Course Summary of Care Provided Hospital Course: 26yo G1 with hx cystic fibrosis and gestational diabetes was admitted at 37wga in labor with SROM and breech presentation. She underwent an uncomplicated section. Her postop course was unremarkable and she was discharged to home on postop day #2. Weight / BMI Weight Weight: 87.543 kg Body Mass Index (BMI) 34.2 ABG / Lab / Microbiology Data Result Diagrams: 10/29/21 06:20 Microbiology: Microbiology 10/28/21 06:15 Nasal Secretion SARS-CoV-2 Antigen (Rapid) - Final Meaningful Use Info Meaningful Use Diagnoses (Choose all that apply): None applicable Discharge Plan Admission Admit Date/Time: 10/28/21 05:45 Primary Reason for Your Visit: delivery Attending Provider: Tha Méndez Primary Care Provider: Karly Ramirez NP Discharge Orders/Prescriptions Prescriptions: New ibuprofen 600 mg Tablet 600 mg PO Q8H PRN PRN (Reason: pain) 7 Days Qty: 30 RF: 0 Continued Creon 24,000-76,000 -120,000 unit capsule,delayed release(DR/EC) 7 cap PO TID RF: 0 albuterol sulfate 90 mcg/actuation HFA aerosol inhaler 1 inh INHALATION BID RF: 0 acetylcysteine 200 mg/mL (20 %) solution 2 ml INHALATION BID RF: 0 cromolyn 20 mg/2 mL solution for nebulization 2 ml INHALATION BID RF: 0 Trikafta 100-50-75 mg(d) /150 mg (n) tablets, sequential See Rx Instructions .ROUTE .COMPLEX RF: 0 Referrals / Follow Up: Karly Ramirez NP, WATCH AND CLOCK REPAIR CLERK-C [Primary Care Provider] - Disposition Disposition (needs filled in before D/C Order can be placed): Home, Self Care
--- NOTE | 2021-10-30 07:29 | PCM.DC ---
Discharge Instructions Diet Discharge Diet: No restrictions Activity Discharge Activity: Return to Normal Activity and May Shower May resume sexual activity in: 4-6 weeks Lifting Restrictions: 10 lb Dressing / Incision Call your doctor if you observe: Inability to urinate, Using more than 1 pad per hour, Shortness of breath, Chest pain, Calf discomfort, Uncontrolled pain and - (Persistent or severe headache) Suture Line Care: Avoid Pulling/Pushing Remove Dressing in: 4 days Cleanse incision/area with: Soap & Water Follow Up Care Please Follow Up With: Kirill Roberts MD When: 2 weeks for incision check 6 weeks for visit Test Results: Test results from this visit will be discussed in further detail at your follow-up appointment, if applicable. Discharge Plan Admission Admit Date/Time: 10/28/21 05:45 Primary Reason for Your Visit: delivery Attending Provider: Tha Méndez Primary Care Provider: Karly Ramirez NP Discharge Orders/Prescriptions Prescriptions: New ibuprofen 600 mg Tablet 600 mg PO Q8H PRN PRN (Reason: pain) 7 Days Qty: 30 RF: 0 Continued Creon 24,000-76,000 -120,000 unit capsule,delayed release(DR/EC) 7 cap PO TID RF: 0 albuterol sulfate 90 mcg/actuation HFA aerosol inhaler 1 inh INHALATION BID RF: 0 acetylcysteine 200 mg/mL (20 %) solution 2 ml INHALATION BID RF: 0 cromolyn 20 mg/2 mL solution for nebulization 2 ml INHALATION BID RF: 0 Trikafta 100-50-75 mg(d) /150 mg (n) tablets, sequential See Rx Instructions .ROUTE .COMPLEX RF: 0 Referrals / Follow Up: Karly Ramirez NP, PRINT DECORATOR-C [Primary Care Provider] - Disposition Disposition (needs filled in before D/C Order can be placed): Home, Self Care
[2021-10-30 08:20] VITALS: BP 119/72; PULSE 89; RESP 18; TEMP 36.6; O2SAT 98
[2021-10-30] MEDS: LIPASE/PROTEASE/AMYLASE 1 EACH CAPSULE.DR 5 EACH PO (08:35)
[2021-10-30] MEDS: ELEXACAFTOR/TEZACAFTOR/IVACAFT 1 EACH TABLET.SEQ 2 EACH PO (08:36)
[2021-10-30] MEDS: Albuterol 2.5 MG/3 ML VIAL.NEB. INHALATION (08:38)
[2021-10-30] MEDS: Acetylcysteine (Mucomyst Oral) 20% SOLN 400 MG INHALATION (08:38)
[2021-10-30 08:39] VITALS: PULSE 88; RESP 18
[2021-10-30] MEDS: CROMOLYN SODIUM 20 MG/2 ML INHALATION (08:39)
== END 2021-10-30 09:10 | disposition home or self-care (01) | DRG 787 ==
LOC: WPOUT 05:51 → WP 05:51
PROVIDERS: Obstetrics & Gynecology; Admitting Provider Obstetrics & Gynecology; PCP Nurse Practitioner; Visit Provider Obstetrics & Gynecology
DX: O32.1XX0 Maternal care for breech presentation, not applicable or unspecified (principal); E84.9 Cystic fibrosis, unspecified; O24.420 Gestational diabetes mellitus in childbirth, diet controlled; Z37.0 Single live birth; Z3A.37 37 weeks gestation of pregnancy; Z87.19 Personal history of other diseases of the digestive system; O99.284 Endocrine, nutritional and metabolic diseases complicating childbirth
CPT/HCPCS: 59025; 59050; 76815; 82962; 84112; 85025; 85027; 86850; 86900; 86901; 87426; 94640; 94667; 94668; 99218; J7120; A4216; G0378; J2405

== ENCOUNTER → 2022-06-30 | Outpatient (CLI) | payer OTHER, SELFPAY ==
[2022-06-30 15:47] LABS: Absolute Lymphocyte Count 1.67 X10^3/uL (0.83-4.51); Basophil# 0.03 X10^3/uL; Basophil% 0.3 % (0-1); Eosinophil# 0.11 X10^3/uL; Eosinophils% 1.2 % (0-5); Hematocrit 37.7 % (37-47); Hemoglobin 12.4 g/dL (12.0-15.0); Lymphocyte # 1.67 X10^3/ul (0.83-4.51); Lymphocyte % 18.2 % (19-41); Mean Corp Hgb Conc 32.9 g/dL (32-36); Mean Corpuscular Hgb 27.9 pg (27.0-32.0); Mean Corpuscular Volume 84.7 fL (81-99); Mean Platelet Vol. 11.3 fl (6.2-12.0); Monocyte% 4.4 % (0-10); NRBC Flagged by Analyzer 0 % (0-5); Neutrophil # 6.95 X10^3/uL (2.7-7.7); Neutrophil % 75.6 % (47-70); Platelet Count 247 K/mm3 (150-450); RBC Distribution Width CV 13.4 % (11.6-14.6); RBC Distribution Width SD 41.6 fl (35.1-43.9); Red Blood Count 4.45 M/mm3 (4.2-5.4); White Blood Count 9.2 K/mm3 (4.4-11.0)
[2022-06-30 15:53] LABS: Glucose Challenge Gest 1H 50g 139 mg/dL (70-140)
[2022-06-30 16:37] LABS: HIV - WCH Non-Reactive (Nonreactive); Hepatitis B Surface Antigen Non-Reactive (Nonreactive); Hepatitis C Antibody Non-Reactive (Nonreactive); Rubella IgG Reactive (Nonreactive); Syphilis Antibodies Non-reactive
[2022-07-03 10:42] LABS: V-Zoster IgG (Immunity) > 4000 index (Immune >165)
== END | disposition home or self-care (01) ==
LOC: LABSPEC 15:24
PROVIDERS: PCP Nurse Practitioner; Visit Provider Obstetrics & Gynecology
DX: Z34.82 Encounter for supervision of other normal pregnancy, second trimester (principal)
CPT/HCPCS: 36415; 82950; 85025; 86703; 86762; 86780; 86787; 86803; 87086; 87088; 87340

== ENCOUNTER → 2022-09-29 | Outpatient (CLI) | payer OTHER, SELFPAY ==
[2022-09-29 11:53] LABS: Absolute Lymphocyte Count 1.39 X10^3/uL (0.83-4.51); Absolute Neutrophil Count 8.3 X10^3/uL (2.0-7.7); Basophil# 0.04 X10^3/uL; Basophil% 0.4 % (0-1); Eosinophil# 0.14 X10^3/uL; Eosinophils% 1.4 % (0-5); Hematocrit 34.5 % (37-47); Hemoglobin 11.2 g/dL (12.0-15.0); Lymphocyte # 1.39 X10^3/ul (0.83-4.51); Lymphocyte % 13.5 % (19-41); Mean Corp Hgb Conc 32.5 g/dL (32-36); Mean Corpuscular Hgb 29.2 pg (27.0-32.0); Mean Corpuscular Volume 90.1 fL (81-99); Mean Platelet Vol. 10.6 fl (6.2-12.0); Monocyte# 0.44 X10^3/uL; Monocyte% 4.3 % (0-10); NRBC Flagged by Analyzer 0 % (0-5); Neutrophil % 80.2 % (47-70); Platelet Count 228 K/mm3 (150-450); RBC Distribution Width CV 14.8 % (11.6-14.6); RBC Distribution Width SD 48.5 fl (35.1-43.9); Red Blood Count 3.83 M/mm3 (4.2-5.4); White Blood Count 10.3 K/mm3 (4.4-11.0)
[2022-09-29 12:00] LABS: Glucose Challenge Gest 1H 50g 125 mg/dL (70-140)
[2022-09-29 12:23] LABS: Syphilis Antibodies Non-reactive
== END | disposition home or self-care (01) ==
LOC: WOBLAB 10:48
PROVIDERS: PCP Nurse Practitioner; Visit Provider Obstetrics & Gynecology
DX: Z34.82 Encounter for supervision of other normal pregnancy, second trimester (principal)
CPT/HCPCS: 36415; 82950; 85025; 86780

== ENCOUNTER 2022-11-26 05:35 | Emergency (ER) | payer OTHER, SELFPAY ==
[2022-11-26 05:37] VITALS: BP 134/81; PULSE 100; RESP 13; TEMP 36.4; O2SAT 100; BMI 32.7
--- NOTE | 2022-11-26 06:03 | EKG12_ITS ---
Test Reason : CP Blood Pressure : / mmHG Vent. Rate : 105 BPM Atrial Rate : 105 BPM P-R Int : 122 ms QRS Dur : 072 ms QT Int : 324 ms P-R-T Axes : 075 066 036 degrees QTc Int : 428 ms Sinus tachycardia Otherwise normal ECG Confirmed by VAIBHAV CYR, ANAMIKA ([id number]), online content editor KENYA BRIONES ([id number]) on 11/28/2022 1:23:08 PM Referred By: VISHNU Confirmed By:CASSANDRA ESPOSITO MD
--- NOTE | 2022-11-26 06:05 | EX.ED.DYSGE1 ---
HPI History of Present Illness Chief Complaint: Chest Pain Informant: patient and spouse/S.O. Narrative Narrative: G2, P1 34-week gestation history of cystic fibrosis followed by Dr. Kirill Roberts presents after awakening 2 AM midsternal intermittent sharp pains. No pain with deep breath. No dyspnea. Took Maalox no relief. Called her OB was told to the ER. States normal cough with cystic fibrosis nonproductive. No fevers. Has been no issue with this . No reflux symptoms. No urinary symptoms. She is on prenatals. Denies tobacco alcohol or illicit drug use. Prior similar symptoms: No PFSH PFSH Medical History Cystic fibrosis Gastric reflux Gestational diabetes Hx of small bowel obstruction (~1995) Home Medications acetylcysteine 200 mg/mL (20 %) solution 2 ml inhalation BID 12/31/19 [History Last Taken Unknown] albuterol sulfate 90 mcg/actuation aerosol inhaler 1 inh inhalation BID 12/31/19 [History Last Taken Unknown] cromolyn 20 mg/2 mL solution for nebulization 2 ml inhalation BID 12/31/19 [History Last Taken Unknown] elexacaftor 100 mg-tezacaf 50mg-ivacaf 75mg(d)/ivacaf 150mg(n) tablets (Trikafta) See Rx Instructions .Route .COMPLEX 12/31/19 [History Last Taken Unknown] vjbwpw-drlofozo-dbitcbe 24,000-76,000-120,000 unit capsule,delayed rel (Creon) 7 cap PO TID 12/31/19 [History Last Taken Unknown] ibuprofen 600 mg tablet 600 mg PO Q8H PRN PRN pain 7 days #30 tabs 10/30/21 [Rx Last Taken Unknown] famotidine 20 mg tablet (Pepcid) 20 mg PO BID #60 tabs 11/26/22 [Rx Last Taken Unknown] Allergy/AdvReac Type Severity Reaction Status Date / Time dicyclomine [From Bentyl] Allergy Shortness Verified 11/26/22 05:35 of breath hyoscyamine [From Levsin] Allergy Shortness Verified 11/26/22 05:35 of breath levofloxacin [From Levaquin] Allergy Anaphylaxis Verified 11/26/22 05:35 Sulfa (Sulfonamide Allergy Pain in Verified 11/26/22 05:35 Antibiotics) joints tamsulosin [From Flomax] Allergy Unknown Verified 11/26/22 05:35 vancomycin Allergy Other Verified 11/26/22 05:35 Surgical History History of removal of Port-a-Cath (~2018) Hx of hernia repair (~2006) Social History Smoking Status: Never smoker ROS ROS ED Constitutional Constitutional ED: Denies chills, fever(s) or sweats Eyes Eyes: Denies change in vision ENT ENT ED: Denies dysphagia or sore throat Cardiovascular Cardiovascular: Reports chest pain; Denies leg edema, palpitations or racing heartbeat Respiratory/Chest Respiratory/Chest: Denies cough, dyspnea or dyspnea on exertion Gastrointestinal Gastrointestinal: Denies abdominal pain, diarrhea, nausea or vomiting Genitourinary Genitourinary ED: Denies dysuria, hematuria or urinary frequency Musculoskeletal Musculoskeletal: Denies back pain, extremity pain or neck pain Integumentary Denies rash or wounds Neurologic Neurologic: Denies headache(s), paresthesias or weakness EXAM Physical Exam Const Vital Signs: 11/26/22 05:37 11/26/22 05:37 11/26/22 06:27 Temperature 97.6 F L Temperature Source Temporal Pulse Rate 100 88 Respiratory Rate 13 22 H Respiratory Effort Normal Blood Pressure 134/81 H 118/80 Blood Pressure Mean 98 92 Pulse Ox 100 98 Oxygen Delivery Method Room Air Positive well nourished and well developed General Appearance ED: well developed and NAD HEENT Reports moist mucous membranes normocephalic and atraumatic Eyes PERRL, EOMs intact bilaterally and conjunctivae normal General Eye ED: Yes normal appearance of both eyes Neck no lymphadenopathy and supple General: Negative for tenderness Chest Wall Chest: Negative for tenderness Resp normal respiratory effort and normal air movement Effort and Inspection: symmetric chest movement; Negative for respiratory distress Cardio regular rate, regular rhythm and no murmurs Peripheral Pulses: pulses 2+ throughout GI non-tender GI Narrative: Gravid abdomen Palpation: Negative for guarding or rebound tenderness present Back/Spine no CVA tenderness and no thoracic nor lumbar tenderness Extremity normal to inspection General Extremety ED: Negative for edema or tenderness General Extremity: Negative for edema Neuro oriented x3 and no sensory deficits noted Sensorium / Orientation: awake and alert Skin no rashes or lesions noted and no wounds MDM MDM MDM Narrative Medical decision making narrative: Interventions / MDM: Differential diagnosis: -induced reflux, atypical chest pain Diagnosis considered but do not suspect: ACS however EKG with no ischemic findings. Pulmonary embolus however denies any dyspnea complaints. My EKG interpretation: Sinus rate of 105, no ST changes. ST T wave version leads III, nonspecific. Imaging independently reviewed and interpreted by myself: N/A External documents reviewed: N/A Test considered but not ordered:N/A ED course: EKG no ischemic findings. 34 weeks . Bedside ultrasound performed myself with heart tones 144 positive movement. No vaginal bleeding or dysuria symptoms. She treated with GI cocktail with improving symptoms on reevaluation. Patient with no dyspnea symptoms for concerns for PE. Concerns with her gravid abdomen causing reflux symptoms. Discussed with patient and placed on Pepcid, discussed not eating late at night. Monitoring symptoms. Return precaution discussed. All questions were answered. Re-evaluation: stable Disposition discussed with patient/family/significant other: Patient and significant other Case discussed with consulting clinician: N/A This note was generated with [employer] dictation software. It may contain incorrect words, spelling, and punctuation that were not noted in checking the note before signing. Discharge Plan Triage Chief Complaint: Chest Pain ED Provider: Nito Garcia Dx/Rx/DC Orders Clinical Impression: GERD with esophagitis, Third trimester Instructions: 3rd Trimester Changes, GERD Dc Prescriptions: New famotidine [Pepcid] 20 mg tablet 20 mg PO BID Qty: 60 0RF No Action Creon 24,000-76,000 -120,000 unit capsule,delayed release(DR/EC) 7 cap PO TID Rx Instructions: administer with meals and/or snacks albuterol sulfate 90 mcg/actuation HFA aerosol inhaler 1 inh INHALATION BID acetylcysteine 200 mg/mL (20 %) solution 2 ml INHALATION BID cromolyn 20 mg/2 mL solution for nebulization 2 ml INHALATION BID Trikafta 100-50-75 mg(d) /150 mg (n) tablets, sequential See Rx Instructions .ROUTE .COMPLEX Rx Instructions: PO PER PKG DIR must administer with high-fat meal or food 2 TABS AM, 1 TAB EVENING ibuprofen 600 mg Tablet 600 mg PO Q8H PRN PRN (Reason: pain) 7 Days Qty: 30 0RF Hold Instructions: Order Completed Primary Care Provider: Karly Ramirez NP Referrals: Kirill Roberts MD [Med Staff - Active Staff] - Keep Valerie appointment Karly Ramirez RETAIL VISUAL MERCHANDIS[employer], RETAIL VISUAL [employer]CHAND[employer]-C [Primary Care Provider] - Disposition Disposition: Home, Self Care
[2022-11-26 06:27] VITALS: BP 118/80; PULSE 88; RESP 22; O2SAT 98
[2022-11-26] MEDS: Mag Hydrox/Al Hydrox/Simeth 30 ML UDC PO (06:27)
[2022-11-26 07:10] VITALS: BP 102/67; PULSE 85; RESP 21; O2SAT 97
== END 2022-11-26 07:12 | disposition home or self-care (01) ==
PROVIDERS: Emergency Provider Emergency Medicine; PCP Nurse Practitioner; Visit Provider Emergency Medicine
DX: O99.613 Diseases of the digestive system complicating pregnancy, third trimester (principal); E84.9 Cystic fibrosis, unspecified; K21.00 Gastro-esophageal reflux disease with esophagitis, without bleeding; Z3A.34 34 weeks gestation of pregnancy; O99.283 Endocrine, nutritional and metabolic diseases complicating pregnancy, third trimester; O99.891 Other specified diseases and conditions complicating pregnancy; R07.9 Chest pain, unspecified
CPT/HCPCS: 93005; 99283; A4216

== ENCOUNTER → 2022-12-08 | Outpatient (CLI) | payer OTHER, SELFPAY ==
[2022-12-08 14:51] LABS: Absolute Lymphocyte Count 1.98 X10^3/uL (0.83-4.51); Absolute Neutrophil Count 7.7 X10^3/uL (2.0-7.7); Basophil# 0.05 X10^3/uL; Basophil% 0.5 % (0-1); Eosinophil# 0.15 X10^3/uL; Eosinophils% 1.4 % (0-5); Hemoglobin 10.9 g/dL (12.0-15.0); Lymphocyte # 1.98 X10^3/ul (0.83-4.51); Lymphocyte % 18.7 % (19-41); Mean Corp Hgb Conc 32.1 g/dL (32-36); Mean Corpuscular Hgb 28.1 pg (27.0-32.0); Mean Corpuscular Volume 87.6 fL (81-99); Mean Platelet Vol. 11.2 fl (6.2-12.0); Monocyte# 0.65 X10^3/uL; Monocyte% 6.1 % (0-10); NRBC Flagged by Analyzer 0 % (0-5); Neutrophil # 7.72 X10^3/uL (2.7-7.7); Neutrophil % 72.9 % (47-70); Platelet Count 242 K/mm3 (150-450); RBC Distribution Width CV 14.5 % (11.6-14.6); RBC Distribution Width SD 45.3 fl (35.1-43.9); Red Blood Count 3.88 M/mm3 (4.2-5.4); White Blood Count 10.6 K/mm3 (4.4-11.0)
[2022-12-08 15:17] LABS: Syphilis Antibodies Non-reactive
== END | disposition home or self-care (01) ==
LOC: WOBLAB 14:15
PROVIDERS: PCP Nurse Practitioner; Visit Provider Obstetrics & Gynecology
DX: Z34.83 Encounter for supervision of other normal pregnancy, third trimester (principal); Z36.85 Encounter for antenatal screening for Streptococcus B; Z3A.00 Weeks of gestation of pregnancy not specified
CPT/HCPCS: 36415; 85025; 86780; 87081

== ENCOUNTER 2022-12-28 05:45 | Inpatient (IN) | payer OTHER, SELFPAY ==
[2022-12-28] VITALS (28 sets, daily range): BP systolic 89–113; BP diastolic 52–71; PULSE 61–102; RESP 11–23; TEMP 36.1–36.8; O2SAT 94–100; BMI 31.8
[2022-12-28 05:44] LABS: ROM Internal Control Test YES-OK TO RESULT pt. (Internal QC)
[2022-12-28 05:45] LABS: ROM Patient Test POSITIVE (Negative); Record Kit Lot#, ROM+ K1374
--- NOTE | 2022-12-28 06:44 | HP.PCM.OB_ITS ---
History and Physical Date of Admission: 12/28/22 HPI: 27-year-old G3, P1 at 38/6 weeks, SULEMA 01/05/2023 by LMP, admitted for repeat section for breech and rupture of membranes. Reports rupture membranes at 2100 last evening. Was feeling contractions around 3 AM, however at this time she is barely feeling anything. Denies vaginal bleeding. Reports movement. Denies headache or vision changes, chest pain or shortness of breath, nausea or vomiting, diarrhea constipation, fevers or chills. complicated by: Cystic fibrosis [employer] history: G1: First trimester SAB G2: for breech G3: Current Medical history: 1. Cystic fibrosis Surgical history: 1. Bowel obstruction as a 2. Hernia repair in 2008 and 2009 3. Mediport placement 2014 4. Mediport removal 2019 5. section 2021 Family history: Noncontributory Social history: Denies tobacco, alcohol, drug use Allergies: Dicyclomine, hyoscyamine, levofloxacin, sulfa, Flomax, vancomycin Medications: 1. vitamin 2. Acetylcysteine 3. Albuterol 4. Elexacaftor/tezacaf 5. Pepcid 6. Lipase/protease/amylase Review of system: Negative otherwise stated above Physical exam: Vitals Blood pressure 111/71, heart rate 102, temp 98.0 ?F General: No acute distress resting comfortably in bed HEENT: Normal cephalic/atraumatic Cardiorespiratory: No increased effort Abdomen: Soft, nontender, Gravid Extremities: Minimal edema Neurologic: Cranial nerves II through XII grossly intact, no focal deficits Musculoskeletal: Moves all extremities CE 1 cm per RN BSUS: breech confirmed heart rate: 135/mod juan/+accel/no decel [place]: intermittent Assessment/plan: 27-year-old G3, P1 at 38/6 weeks, SULEMA 01/05/2023 by LMP, admitted for repeat section for breech and rupture of membranes. complicated by: Cystic fibrosis. ?For repeat section. 2 g Ancef and 500 mg azithromycin preoperatively. All risk, benefits, alternatives were discussed with patient. Risks include but are not limited to: Risk of bleeding to the blood transfusion, infection, injury to surrounding tissue including bowel/bladder potentially requiring prolonged Mascorro catheter use, VTE, ICU admission. Patient aware and consented.
[2022-12-28] MEDS: Lactated Ringers 1,000 ML 999 ML IV ×2 (08:25→09:15)
[2022-12-28 08:52] LABS: Absolute Lymphocyte Count 2.13 X10^3/uL (0.83-4.51); Absolute Neutrophil Count 9.6 X10^3/uL (2.0-7.7); Basophil# 0.05 X10^3/uL; Basophil% 0.4 % (0-1); Eosinophil# 0.04 X10^3/uL; Eosinophils% 0.3 % (0-5); Hematocrit 31.9 % (37-47); Hemoglobin 10.7 g/dL (12.0-15.0); Lymphocyte # 2.13 X10^3/ul (0.83-4.51); Lymphocyte % 16.7 % (19-41); Mean Corp Hgb Conc 33.5 g/dL (32-36); Mean Corpuscular Volume 86.4 fL (81-99); Mean Platelet Vol. 10.9 fl (6.2-12.0); Monocyte# 0.71 X10^3/uL; Monocyte% 5.6 % (0-10); NRBC Flagged by Analyzer 0 % (0-5); Neutrophil # 9.59 X10^3/uL (2.7-7.7); Neutrophil % 75.4 % (47-70); Platelet Count 225 K/mm3 (150-450); RBC Distribution Width CV 14.7 % (11.6-14.6); RBC Distribution Width SD 46.3 fl (35.1-43.9); Red Blood Count 3.69 M/mm3 (4.2-5.4); White Blood Count 12.7 K/mm3 (4.4-11.0)
[2022-12-28] MEDS: Acetaminophen 500 MG Tablet 1000 MG PO ×3 (09:09→21:12)
[2022-12-28] MEDS: Sodium Citrate/Citric Acid 30 ML UDC PO (09:09)
[2022-12-28] MEDS: Cefazolin 2 GM in 0.9% Normal Saline 100 ML IV (09:17)
[2022-12-28 09:26] LABS: Syphilis Antibodies Non-reactive
--- NOTE | 2022-12-28 10:14 | OP.PCM_ITS ---
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 Normal uterus, tubes, and ovaries. Consent: Patient arrives with spontaneous rupture membranes and breech with history of section for repeat section Via Pfannenstiel incision. Patient understands risk of the procedure include but are not limited to visceral or vascular injury, prolonged hospitalization, blood loss need for transfusion, reoperation. Patient stated understanding and wished to proceed. All questions were answered and consent was signed. Procedure: Patient was brought back to the OR where spinal anesthesia was found to be adequate. 2 g Ancef and 500 mg of azithromycin were given for infection prophylaxis. Patient was prepared and draped in a supine position with leftward tilt. A Pfannenstiel incision was made at the skin with a scalpel. The incision was carried down to the fascia with a scalpel. The fascia was excised and extended laterally. Inferior aspect of the fascia was grasped with a clamp and the underlying rectus and pyramidalis muscle were dissected off sharply with Deleon scissors. In a similar fashion the superior aspect of the fascia was grasped with a clamp and the underlying rectus muscle was dissected off sharply. Rectus muscle was dissected at the left midline down to the level of the pubic symphysis. Preperitoneal fatty tissue was noted. Peritoneum was entered bluntly. Peritoneum was extended superiorly and inferiorly with good visualization of bladder. Bladder blade was inserted and vesicouterine peritoneum was identified. Low transverse hysterotomy was made. Hand was placed into the incision and baby was delivered in standard breech fashion. Cord was clamped and cut. Baby handed off to nursing. Placenta was delivered via cord traction and fundal massage. IV oxytocin was initiated in order to facilitate uterine contractions. Uterus was exteriorized and wiped out with dry laparotomy sponge in order to remove remaining placental membranes. Uterus was closed in a continuous running fashion. [id number]-[id number] sutures were used for hemostasis. Good hemostasis was noted. Uterus was placed back in the abdominal cavity and the incision was reinspected, good hemostasis was noted. Judith was placed over the incision and good hemostasis was noted. Fascia was closed in a continuous running fashion with PDS suture. Subcutaneous irrigation was performed and hemostasis was achieved with the Bovie. Good hemostasis was noted. Skin was closed in a subcuticular fashion. All counts were correct x 2. Patient tolerated procedure well and was brought to recovery in stable condition.
[2022-12-28] MEDS: Acetylcysteine 800 MG/4 ML VIAL.NEB. 400 MG INHALATION ×2 (11:44→20:52)
[2022-12-28] MEDS: Oxytocin 15 Units/NS 250ml 15 UNITS/250 ML IV.SOLN 83 UNITS IV (11:45)
[2022-12-28] MEDS: Famotidine 20 MG Tablet PO ×2 (12:27→22:04)
[2022-12-28] MEDS: Albuterol IH (6.7 GM) 1 PUFF INHALER INHALATION ×2 (12:28→20:52)
[2022-12-28] MEDS: ELEXACAFTOR/TEZACAFTOR/IVACAFT 1 EACH TABLET.SEQ 2 EACH PO (12:29)
[2022-12-28] MEDS: Ketorolac 30 MG/ML Syringe IV ×3 (12:29→23:53)
[2022-12-28] MEDS: Creon 24,000 unit DR Capsule 7 CAP PO ×2 (13:59→18:03)
[2022-12-28] MEDS: Lactated Ringers 1,000 ML 100 ML IV (15:03)
[2022-12-28] MEDS: Nalbuphine 10 MG/ML Ampul 5 MG IV ×2 (17:23→20:43)
[2022-12-28] MEDS: ELEXACAFTOR/TEZACAFTOR/IVACAFT 1 EACH TABLET.SEQ PO (18:01)
[2022-12-28] MEDS: 0.9% Saline Lock 10 ML Syringe IV ×3 (18:05→23:53)
[2022-12-28] MEDS: Enoxaparin 40 MG/0.4 ML Syringe SC (22:05)
[2022-12-29 01:46] VITALS: PULSE 60; RESP 16; O2SAT 95
[2022-12-29] MEDS: Acetaminophen 500 MG Tablet 1000 MG PO ×2 (03:15→09:48)
[2022-12-29 03:20] VITALS: BP 106/63; PULSE 68; RESP 16; TEMP 36.5; O2SAT 97
[2022-12-29 05:45] VITALS: PULSE 89; RESP 18; O2SAT 98
[2022-12-29] MEDS: Ketorolac 30 MG/ML Syringe IV (05:49)
[2022-12-29] MEDS: 0.9% Saline Lock 10 ML Syringe IV (05:49)
[2022-12-29] MEDS: Nalbuphine 10 MG/ML Ampul 5 MG IV (06:19)
[2022-12-29 06:59] LABS: Hematocrit 30.1 % (37-47); Hemoglobin 9.5 g/dL (12.0-15.0); Mean Corp Hgb Conc 31.6 g/dL (32-36); Mean Corpuscular Hgb 28.1 pg (27.0-32.0); Mean Corpuscular Volume 89.1 fL (81-99); Mean Platelet Vol. 10.6 fl (6.2-12.0); Platelet Count 229 K/mm3 (150-450); RBC Distribution Width CV 14.6 % (11.6-14.6); RBC Distribution Width SD 47.1 fl (35.1-43.9); Red Blood Count 3.38 M/mm3 (4.2-5.4); White Blood Count 9.3 K/mm3 (4.4-11.0)
[2022-12-29 07:24] LABS: Scan Indicated on CBC? Y/N NO
[2022-12-29 07:56] VITALS: PULSE 56; RESP 16; O2SAT 98
[2022-12-29] MEDS: ELEXACAFTOR/TEZACAFTOR/IVACAFT 1 EACH TABLET.SEQ 2 EACH PO (08:12)
[2022-12-29] MEDS: Creon 24,000 unit DR Capsule 7 CAP PO (08:13)
--- NOTE | 2022-12-29 08:14 | PCM.DC ---
Discharge Instructions Diet Discharge Diet: No restrictions Activity Discharge Activity: Return to Normal Activity, May Drive, May Shower and - (No tub baths for 2 weeks) May resume sexual activity in: 6-8 weeks Lifting Restrictions: No lifting over 25 pounds for 2 to 3 weeks Dressing / Incision Call your doctor if your incision/area has: Continuous Slow Oozing and Foul Smelling Discharge Call your doctor if you observe: Fever of 101 or Higher, Shortness of breath and Chest pain Follow Up Care Please Follow Up With: Kirill Roberts MD When: 2 weeks postoperatively Test Results: Test results from this visit will be discussed in further detail at your follow-up appointment, if applicable. Discharge Plan Admission Admit Date/Time: 12/28/22 05:45 Primary Reason for Your Visit: Repeat section Attending Provider: Kirill Roberts Primary Care Provider: Karly Ramirez NP Instructions Additional Instructions / Restrictions: Regular diet. Okay to shower. No tub baths for 2 weeks. No intercourse for 6 to 8 weeks. No lifting over 25 pounds for 2 to 3 weeks. Call if fevers, chills, chest pain, shortness of breath. Follow-up 2 weeks postoperatively Discharge Orders/Prescriptions Prescriptions: New oxycodone 5 mg tablet 5 mg PO Q6H PRN (Reason: pain (scale score 7-10)) 4 Days Qty: 16 0RF Continued Creon 24,000-76,000 -120,000 unit capsule,delayed release(DR/EC) 7 cap PO TID Rx Instructions: administer with meals and/or snacks albuterol sulfate 90 mcg/actuation HFA aerosol inhaler 1 inh INHALATION BID acetylcysteine 200 mg/mL (20 %) solution 2 ml INHALATION BID Trikafta 100-50-75 mg(d) /150 mg (n) tablets, sequential See Rx Instructions .ROUTE .COMPLEX Rx Instructions: PO PER PKG DIR must administer with high-fat meal or food 2 TABS AM, 1 TAB EVENING famotidine [Pepcid] 20 mg tablet 20 mg PO BID Qty: 60 0RF vit-iron fum-folic ac 65 mg iron- 1 mg tablet 1 tab PO DAILY Referrals / Follow Up: Karly Ramirez NP, BENEFITS COUNSELOR-C [Primary Care Provider] - Disposition Discharge Orders: Discharge Patient (Routine); Ordered 12/29/22 Ordered By: Dr. Kirill Roberts
--- NOTE | 2022-12-29 08:14 | PCM.PN.OB ---
Subjective Subjective No overnight complaints Objective Data Objective Data Vital Signs: Vital Signs Temp Pulse Resp BP Pulse Ox O2 Del Method 97.7 F L 56 L 16 106/63 98 Room Air 12/29/22 03:20 12/29/22 07:56 12/29/22 07:56 12/29/22 03:20 12/29/22 07:56 12/29/22 07:56 Oxygen Delivery Method Room Air Weight: 179 lb 9.6 oz Body Mass Index (BMI) 31.8 Intake & Output: Intake and Output for Last 24 Hours 12/27/22 12/28/22 12/29/22 23:59 23:59 23:59 Intake Total 3544 / 3544 Output Total 2900 / 2900 Balance 644 / 644 Lab / Micro Data 12/29/22 06:50 Labs: Laboratory Results - last 24 hr 12/28/22 08:40: WBC 12.7 H, RBC 3.69 L, Hgb 10.7 L, Hct 31.9 L, MCV 86.4, MCH 29.0, MCHC 33.5, RDW Std Deviation 46.3 H, RDW Coeff of Markie 14.7 H, Plt Count 225, MPV 10.9, Immature Gran % (Auto) 1.600 H, Neut % (Auto) 75.4 H, Lymph % (Auto) 16.7 L, [place] % (Auto) 5.6, Eos % (Auto) 0.3, Baso % (Auto) 0.4, Absolute Neuts (auto) 9.6 H, Absolute Lymphs (auto) 2.13, Nucleated RBC % 0, Syphilis Total Ab Non-reactive, Blood Type A POSITIVE, Antibody Screen NEGATIVE 12/28/22 11:40: Chlamydia DNA (MARICRUZ) Cancelled, N.gonorrhoeae DNA (MARICRUZ) Cancelled 12/29/22 06:50: WBC 9.3, RBC 3.38 L, Hgb 9.5 L, Hct 30.1 L, MCV 89.1, MCH 28.1, MCHC 31.6 L D, RDW Std Deviation 47.1 H, RDW Coeff of Markie 14.6, Plt Count 229, MPV 10.6 Micro: Microbiology 12/28/22 11:40 Interface Orders Chlamydia trachomatis (PCR) - Final 12/28/22 11:40 Interface Orders Neisseria gonorrhoeae (PCR) - Final Physical Exam Const alert, oriented x3, no apparent distress, average body habitus, healthy appearing and well nourished HEENT normocephalic and moist oral mucous membranes Eyes PERRL Neck full ROM Resp normal respiratory effort, no retractions and no use of accessory muscles GI GI Narrative: Soft, nontender, bandage clean dry and intact Extremity normal to inspection and full ROM Neuro moves all extremities and no focal motor deficits Psych mental status grossly normal, affect normal, speech normal and activity/motor behavior normal Assessment & Plan (1) delivery delivered: PLAN: Postop day 1 status post repeat section. Breast-feeding. Pain well-controlled. Okay to discharge home today if okay with digital campaign specialist
[2022-12-29] MEDS: Famotidine 20 MG Tablet PO (08:15)
[2022-12-29 08:42] VITALS: BP 101/69; PULSE 60; RESP 16; TEMP 36.3; O2SAT 98
[2022-12-29 09:56] VITALS: PULSE 62; RESP 16; O2SAT 98
[2022-12-29] MEDS: Albuterol IH (6.7 GM) 1 PUFF INHALER INHALATION (10:39)
[2022-12-29] MEDS: Senna/Docusate Sodium 1 Tablet PO (10:40)
[2022-12-29] MEDS: Enoxaparin 40 MG/0.4 ML Syringe SC (10:40)
[2022-12-29] MEDS: Acetylcysteine 800 MG/4 ML VIAL.NEB. 400 MG INHALATION (10:40)
== END 2022-12-29 11:40 | disposition home or self-care (01) | DRG 787 ==
LOC: WPOUT 05:48 → WP 09:56
PROVIDERS: Student in an Organized Health Care Education/Training Program; Admitting Provider Obstetrics & Gynecology; PCP Nurse Practitioner; Referring Provider Obstetrics & Gynecology; Visit Provider Obstetrics & Gynecology
DX: O32.1XX0 Maternal care for breech presentation, not applicable or unspecified (principal); E84.9 Cystic fibrosis, unspecified; O99.284 Endocrine, nutritional and metabolic diseases complicating childbirth; O34.211 Maternal care for low transverse scar from previous cesarean delivery; Z3A.38 38 weeks gestation of pregnancy; Z37.0 Single live birth
CPT/HCPCS: 36415; 59025; 59050; 76815; 84112; 85025; 85027; 86780; 86850; 86900; 86901; 87491; 87591; 94640; 99221; 99252; J7120; A4216; G0378; G0463; J2405